=== PATIENT | male | born 1985 | race Caucasian/White ===

== ENCOUNTER 2020-09-03 16:38 | Emergency (ER) | payer OTHER ==
[~2020-09-03] VITALS: Ht 167.6 cm; Wt 56.7 kg
[2020-09-03] MEDS ORDERED: DOXYCYCLINE 10100 MG PO (16:52)
[2020-09-03] MEDS ORDERED: SUPRAX400 M1 PO (16:52)
[2020-09-03 17:01] VITALS: BP 134/49
== END 2020-09-03 17:02 | disposition home or self-care (01) ==
LOC: M.ERS 16:38
DX: Z20.2 Contact with and (suspected) exposure to infections with a predominantly sexual mode of transmission (principal)